=== PATIENT | female | born 1960 | race Caucasian/White ===

== ENCOUNTER 2024-03-19 06:38 | Day surgery (SDC) | payer BC, SELFPAY ==
[2024-03-06 10:06] VITALS: BMI 22.6
[2024-03-06 10:27] LABS: % Basophils 0.4 % (0-2); % Eosinophils 0.8 % (0-6); % Immature Granulocytes 0.2 % (0-0.5); % Lymphocytes 13.9 % (20.5-51.1); % Monocytes 8.7 % (1.7-9.3); Absolute Lymphocytes 0.7 10^3/uL (1.2-3.4); Absolute Monocytes 0.5 10^3/uL (0.1-0.6); Hematocrit 42.8 % (37.0-47.0); Mean Corp Hgb Conc. 32.7 g/dL (33.0-37.0); Mean Corpuscular Hgb 31.4 pg (27.0-31.0); Mean Platelet Volume 10.3 fL (7.4-10.4); Nucleated Red Blood Cells % 0 %; Platelet Count 231 10^3/uL (130-400); Red Blood Cell Count 4.46 10^6/uL (4.20-5.40); Red Cell Dist. Width 12.1 % (11.5-14.5); White Blood Cell Count 5.2 10^3/uL (4.8-10.8)
[2024-03-06 11:08] LABS: ALT (SGPT) 21 U/L (0-35); AST (SGOT) 34 U/L (14-36); Albumin 4.5 g/dl (3.5-5.0); Alkaline Phosphatase 95 U/L (38-126); Blood Urea Nitrogen 17 mg/dl (7-17); Calcium 9.7 mg/dl (8.4-10.2); Carbon Dioxide 28 mmol/L (22-30); Chloride 100 mmol/L (98-107); Estimated Creatinine Clearance 78 ml/min; Glucose 111 mg/dl (70-99); Potassium 4.5 mmol/L (3.5-5.1); Sodium 137 mmol/L (135-145); Total Bilirubin 0.7 mg/dl (0.2-1.3); Total Protein 6.9 g/dl (6.3-8.2); eGFR > 60.00
[2024-03-19] VITALS (21 sets, daily range): BP systolic 110–137; BP diastolic 63–81; BMI 22.5
--- NOTE | 2024-03-19 09:19 | ITS.CL.ABL ---
Dock Attendant - Ablation
Ablation
Procedure Report:
Supra-Ventricular Tachycardia Ablation:
Ms. Koo is a very pleasant�63 yr old woman with medical history significant for palpitations and was diagnosed with supra-ventricular tachycardia (SVT). She presented today to the EP lab for electrophysiology (EP) study of the heart and possible
ablation of the SVT.
Date of Procedure:
03/19/2024
�
Indications: Supra-Ventricular Tachycardia (SVT)
�
Pre-Operative Diagnosis: Supra-Ventricular Tachycardia (SVT)
�
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
�
Procedure Performed: EP study and SVT ablation
�
Performing Physician:
Cuong Juárez MD
��
Anesthesia:
See anesthesia records
�
Detailed Description of the Procedure:
Written informed consent was obtained from the patient after a full explanation of the risks and benefits of the procedure including the risks of sedation and anesthesia. The patient was brought to the electrophysiology laboratory in stable
condition in fasting state. Continuous electrocardiographic and hemodynamic monitoring was initiated.
The initial rhythm was normal sinus.
The procedure site was meticulously prepared with surgical scrub and allowed to dry with no pooling. Sterile draping was applied to cover the procedure site. The image intensifier was draped with sterile bag and positioned over the patient.
Sheath and Catheter Placement:
After infusion of local anesthetic, vascular access was obtained under ultrasound guidance and sheaths were placed over guide wire as detailed below.
�
Sheaths:
- � � � 6 Fr sheath in right femoral vein
- � � � 7 Fr sheath in right femoral vein
- � � � 8 Fr that was later upgraded to Agilis sheath in right femoral vein
�
Catheters:
- � � � 6Fr - Pilar Quad-cath at RVa
- � � � 6Fr � QRD Quad - cath at HIS
- � � � Bard Decapolar catheter - at locations of CS
- � � � Biosense Oswald EZ steer non-irrigated 4 mm ablation catheter
�
�Following the sheaths placement, patient was given Heparin bolus and EP study was done.
Baseline intervals (milliseconds):
PP interval (baseline cycle length): 680
P wave duration:126
KY interval:152
QRS duration: 84
QT interval: 430
�
AH interval: 64
His duration: 18
HV interval: 47
Q onset to RVa: 0
��
Sinus Node Function:
HRA pacing showed adequate threshold. The sinus node functions are within acceptable normal range.
�
Atrioventricular Tabby Function:
Atrial stimulation with incremental pacing intervals was performed from the high right atrium (HRA) and right ventricular apex (RVa) and antegrade and retrograde atrioventricular (AV) block cycle lengths were determined. The antegrade AV Wenckebach
was noted at 350 msec.
�
Programmed atrial stimulation was performed with drive train of 600 msec followed by a single atrial extra-stimulus and the AV tabby and the atrial ERPs were determined. The AV tabby ERP was <600/250 msec and the atrial ERP was 250msec.
There was normal decremental conduction noted through the AV node. The programmed stimuli showed a clear AH jump.
The fast pathway ERP was 600/300 ms and the slow pathway ERP was 500/250 ms.
Ventricular stimulation showed sluggish retrograde conduction via the AV node. The retrograde Wenckebach was 420msec with frequent non conducted VA beats.
The AV tabby functions are deemed within normal range with easily inducible tachycardia.
�
Ventricular Function:
Single ventricular extrastimuli showed V conduction was normal with below 500 msec ventricular conduction. The ventricular electrical functions are within acceptable range.
�
SVT Arrhythmia Induction:
Easily inducible SVT noted. The atrial burst pacing also non-sustained atrial tachycardia that degenerates into short RP tachycardia at 520 msec.
There were PACs, PVCs and easily inducible tachycardia noted.
Tachycardia:
The tachycardia was studies with a cycle length of 520 msec. The tachycardia was concentric and had short VA time. The tachycardia was entrained from the ventricle and the proximal CS. The ventricle was out of the tachycardia cycle and attempt from
the entrainment from CS maneuver terminated the tachycardia. Following observations were noted. �
a)�Simultaneous A and V (Septal VA interval of <70 ms was at 68msec).�
b) Ventricular Overdrive pacing demonstrated a VAHV�response�
c) SA-VA >85
d) PPI-TCL >115msec
e) HIS synchronous PVC dissociated the RV from the tachycardia
f) HIS synchronous PAC dissociated the RA from the tachycardia
j) The tachycardia was terminated with early PAC or PVC by engaging the AV node showing dependence on the AV node.
�
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
During confirmatory studies, patient demonstrated slow-slow AVNRT as well. There were few non-sustained atrial tachycardia noted as well with induction attempts but not sustained to study.
The tachycardia once induced was easily inducible by simply moving the catheter in the annulus area. The RV entrainment again confirmed the diagnosis of AVNRT.
Electroanatomic 3D Mapping (EAM) and Ablation:
Patient was given Heparin bolus. The HRA was removed and was upgraded to Agilis sheath for ablation catheter. EAM and radiofrequency ablation was performed using a non-irrigation, EZ steer 4 mm radiofrequency ablation catheter. 3D mapping was
performed with Carto Version 6 software. Cardiac anatomy as established. His cloud was established. The triangle of Chavez was marked with ablation catheter. There was a narrow area between the anterior border of the CS and the tricuspid annulus.
A slow pathway AVNRT ablation was pursued. Radiofrequency ablation lesions were applied to the anatomic slow pathway area targeting spike and dome electrograms with > 1:7 A:V ratio just below the His cloud. There were multitude of Junctional beats
with 1:1 VA relationship noted. There was no non-conducted beat.
Post Ablation EP study:
The post ablation EP study showed normal AV conduction. The KY was 160msec; QRS was 86msec; AH was 85msec with HV of 45msec. There was no sign of AV block noted.
There was decremental conduction noted via the AV node. There was still AH jump present but no ECHO beats or any inducible arrhythmia noted. There was no VA conduction noted with normal AV conduction now after the ablation.
There was no echo beats and despite aggressive measures there was no inducible tachycardia. The AV node ERP was <600/250 and atrial ERP was 600/250.
No tachycardia was inducible now.
Procedure End
Following the completion of the EP study, catheters were removed. The sheaths were removed and hemostasis achieved with manual compression.
Recommendations:
��������� Likely discharge home today.
��������� No change in home medications.
�
Estimated Blood loss:
<5 cc
�
Specimens Removed:
None.
�
Implants / Devices:
None
�
Urine output:
None
�
Packs / Drains/ Tubes:
None
�
Instrument / Sponge Count Correct:
Yes
�
Complications of the Procedure:
None
�
Condition of Patient at Time of Transfer:
Hemodynamically stable with no neurological or vascular compromise.
Summary:
Electrophysiology study with induction of atrioventricular tabby re-entrant tachycardia (AVNRT) and successful modification of slow pathway.
[2024-03-19] MEDS: TYLENOL 650 MG PO (09:39)
--- NOTE | 2024-03-19 12:03 | PTCARENOTE ---
Dr Juárez at pt bedside speaking to pt.
== END 2024-03-19 13:40 | disposition home or self-care (01) ==
LOC: CATH 06:38
PROVIDERS: ATTENDING PHYSICIAN Internal Medicine Cardiovascular Disease; FAMILY PHYSICIAN Family Medicine
DX: I47.10 Supraventricular tachycardia, unspecified (principal); R55 Syncope and collapse; F32.A Depression, unspecified; F41.9 Anxiety disorder, unspecified; Z85.820 Personal history of malignant melanoma of skin
CPT/HCPCS: C1732; C1730; C1894; C1766; 36415; 76937; 80053; 85025; 93005; 93653

== ENCOUNTER → 2024-12-07 11:38 | Outpatient (REF) | payer BC, SELFPAY | LOC: HWRAD 11:38 | PROVIDERS: ATTENDING PHYSICIAN Family Medicine | DX: R91.8 Other nonspecific abnormal finding of lung field (principal) | CPT/HCPCS: 71250 ==